=== PATIENT | male | born 1945 | race Caucasian/White ===

== ENCOUNTER → 2018-09-02 | Outpatient (CLI) | payer OTHER ==
[~2018-09-02] VITALS: Ht 185.4 cm; Wt 88.2 kg
[~2018-09-02] MED LIST: AMBIEN 10 MG TA10 MG PO; AMBIEN 5 MG TABL5 M1 PO; ASPIR 8181 M1 PO; ATORVASTATIN CA40 MG PO; CALCIUM 600 +1 EAC1 PO; CELEBREX 200 M200 M1 PO; CELEBREX 200 M200 MG PO; COLACE100 MG PO; FENTANYL PA50 MCG/HR TRANSDERM; HYDROCODONE-AP1 EAC6 PO; LIPITOR40 MG PO; LISINOPRIL10 MG PO; LOW DOSE ASPIRI81 M1 PO; MOBIC15 MG PO; Magnesium PO; Neurontin PO; ROBAXIN 750 MG750 M1 PO; TRAMADOL 50 MG50 MG PO; VITAMIN B12 PO
--- NOTE | ~2018-09-02 | HPC ---
[facility] [address] [place] [address] PAIN MANAGEMENT CONSULTATION Name: ROSY GARCIA Room #: REG JOSE A LianaLuis.#: [id number] Admission: 09/02/18 Attend Phys: Oritz Jain MD Discharge: Date of : 47 Report #: [id number] THIS REPORT FOR: //name// CC: Joshua Jain DATE OF SERVICE: 09/02/2018 Followup visit for chronic low back pain with radiculopathy. The patient is here today for a lumbar epidural injection. He has responded very favorably to injections performed for his L5-S1 spondylolisthesis. In addition, he has a spinal cord stimulator. Adjustment of the spinal cord stimulator was performed by a [employer] sales service representative. We spent some time today in consultation regarding chronic pain. He remains very active, can golf and shoot nearly his age. He shot a 79 last week. His pain is tolerable during activities. Pain becomes more severe often later in the day, with a radiating radicular component into the left leg and left foot following the L5-S1 distribution. PQRS: 1. He has a history of osteoarthritis involving several joints, including shoulders, hips and knees. He relates this to athletics. 2. His BMI is 25.7. He is fit. 3. He is not a fall risk. 4. He is on no blood thinners. 5. He is treated by his primary care physician for hypertension. 6. Medications are reviewed, including lisinopril. He is also on a statin drug. 7. He is on an opioid agreement and is at low risk for addiction. 8. Denies use of tobacco and alcohol. PHYSICAL EXAMINATION: VITAL SIGNS: Blood pressure 134/87, heart rate 91 and respirations 20. BMI is 25.7. MUSCULOSKELETAL: His gait is stable, without antalgic features. Mild tenderness across the low back. Some pain with forward flexion and extension that radiates into the left hip. Straight leg raising is mildly positive into the leg today. Spinal cord stimulator is in good position, mild tenderness over the battery pocket. IMPRESSION: Chronic left lumbar radiculopathy, L5-S1 distribution. PROCEDURE: Epidural injection under fluoroscopic guidance. [facility] [address] [place] [address] PAIN MANAGEMENT CONSULTATION Name: ROSY GARCIA Room #: REG [facility].#: [id number] Admission: 09/02/18 Attend Phys: Ortiz Jain MD Discharge: Date of : 47 Report #: [id number] DESCRIPTION OF PROCEDURE: He is taken to the fluoroscopic suite, placed prone and skin prepped with ChloraPrep. Skin anesthetized over the L5-S1 epidural space. Needle is advanced in first attempt into the epidural space with loss of resistance. There was no blood or CSF aspirated. A 1 mL of Omnipaque injected. Good spread of dye observed into the epidural space, followed by 3 mL of 0.5% lidocaine mixed with 80 mg of triamcinolone. He tolerated the procedure well, was observed in the recovery room for 45 minutes and discharged with a reduction of pain by about 50%. Followup visit planned as needed for further injections. By: [id number] Ortiz Jain MD /nt
[2018-09-02 08:57] VITALS: BP 134/87
--- NOTE | 2018-09-02 08:58 | NUR ---
Pain Clinic Assessment: 1. History of Osteoarthritis: Left Upper Extremity Right Lower Extremity History of Rheumatoid Arthritis: Not Applicable 2. Height: 6 ft. 1 in. 185.4 cm. Weight: 194.4 lb. oz. 88.179 kg. Patient's BMI: 25.7 3. Vital Signs: BP: 134/87 Pulse: 91 Resp: 20 Temp: 02 Sat: 98 ECG Mon: 4. Pain Intensity: 7 5. Fall Risk: Dizziness: Needs help standing or walking: Fallen in the last 3 months: Fall risk comments: 6. Patient on Blood Thinner: None 7. History of Hypertension: Y 8. Opioid Therapy greater than 6 weeks: Y Opiate Contract Signed: 9. Risk Assessment Tool Provided: LOW RISK 0/3 10. Functional Assessment Tool: 11. Recreational Drug Use: Never Drug Type: Tobacco Use: Never Smoker Tobacco Type: Amount or Packs/day: How Many Years: Alcohol Use: No Frequency: Quant:
== END | disposition home or self-care (01) ==
LOC: PAIN 06:58
DX: M54.16 Radiculopathy, lumbar region (principal); G89.29 Other chronic pain; I10 Essential (primary) hypertension; M19.90 Unspecified osteoarthritis, unspecified site; Z79.899 Other long term (current) drug therapy; Z98.890 Other specified postprocedural states; Z79.82 Long term (current) use of aspirin

== ENCOUNTER → 2018-11-04 | Outpatient (CLI) | payer OTHER ==
[~2018-11-04] VITALS: Ht 185.4 cm; Wt 88.0 kg
--- NOTE | ~2018-11-04 | HPC ---
[facility] [address] [place] [address] PAIN MANAGEMENT CONSULTATION Name: ROSY GARCIA Room #: REG JOSE A Skaggs.#: [id number] Admission: 11/04/18 ������������������ Attend Phys: Ortiz Jain MD Discharge: ������������������ Date of : 47 Report #: [id number] THIS REPORT FOR: //name// CC: Joshua Jain DATE OF SERVICE: 11/04/2018 CHIEF COMPLAINT: Followup visit for chronic low back pain with radiculopathy. HISTORY: The patient returns to clinic today continuing to complain of pain in the left leg following an L5 distribution. He has a history of chronic pain, which has been treated by spinal cord stimulator. This was the first, very helpful, but that has gradually declined in its ability to provide relief. He has responded to epidural injections. The last injection performed on 09/02/2018 provided relief, although the duration of response was not as long as we had hoped. He is a very active 73-year-old. We were approaching the golf season, he would like another injection. We discussed a transforaminal approach. MEDICATIONS: Reviewed and reconciled. Lisinopril, Lipitor, aspirin, magnesium, B12, Robaxin, Neurontin, Ambien, hydrocodone, tramadol are noted. BMI is 25.7. He is not a fall risk. He is on no blood thinners. He has a primary care physician, Dr. Mcgee, who treats him for hypertension. Denies use of tobacco or alcohol. He receives opioid medications from Dr. Mcgee under terms of written agreement. PHYSICAL EXAMINATION: He is fit appearing gentleman. Blood pressure is 123/68, heart rate 88 regular, respirations 16. His gait is stable. He has pain across the low back tenderness across the lumbosacral segment. Limited range of motion across the lumbosacral segment due to pain. Positive straight leg raising in the L5 distribution on the left. Mild numbness and tingling following the L5 distribution. No focal weakness is noted. IMPRESSION: Chronic lumbar radiculopathy, L5-S1. Spondylolisthesis of L5-S1. PROCEDURE: Epidural steroid injection, transforaminal approach. PROCEDURE: He was taken to fluoroscopic suite, placed prone, skin prepped with ChloraPrep. Skin anesthetized over the L5-S1 neural foramen on the left. Using triplanar fluoroscopic views, I advanced the needle into the epidural space; 1 mL of Omnipaque demonstrated medication along the L5 nerve [place] [address] PAIN MANAGEMENT CONSULTATION Name: ROSY GARCIA Room #: REG JOSE A Tejada#: [id number] Admission: 11/04/18 ������������������ Attend Phys: Ortiz Jain MD Discharge: ������������������ Date of : 47 Report #: [id number] epidural space, was followed by 3 mL of 0.5% lidocaine mixed with 80 mg of triamcinolone. He tolerated the procedure well, was observed for 45 minutes. Pain score was zero at discharge. Follow up as needed. Repeat injections will be performed as necessary, not exceeding guidelines. We will try to keep this to no more than 4-6 injections per year. Fewer the better. ��������������������������������������������� ���������������������������������������� By: ��������������������������������������������� [id number] Ortiz Jain MD /nt
[2018-11-04 08:32] VITALS: BP 123/68
--- NOTE | 2018-11-04 08:44 | NUR ---
Pain Clinic Assessment: 1. History of Osteoarthritis: Left Upper Extremity Right Lower Extremity History of Rheumatoid Arthritis: Not Applicable 2. Height: 6 ft. 1 in. 185.4 cm. Weight: 194.0 lb. oz. 87.998 kg. Patient's BMI: 25.6 3. Vital Signs: BP: 123/68 Pulse: 88 Resp: 16 Temp: 02 Sat: 100 ECG Mon: 4. Pain Intensity: 7-8 5. Fall Risk: Dizziness: N Needs help standing or walking: N Fallen in the last 3 months: N Fall risk comments: 6. Patient on Blood Thinner: None 7. History of Hypertension: Y 8. Opioid Therapy greater than 6 weeks: Y Opiate Contract Signed: 9. Risk Assessment Tool Provided: LOW RISK 0/3 10. Functional Assessment Tool: 43 11. Recreational Drug Use: Never Drug Type: Tobacco Use: Never Smoker Tobacco Type: Amount or Packs/day: How Many Years: Alcohol Use: No Frequency: Quant:
== END | disposition home or self-care (01) ==
LOC: PAIN 06:52
DX: M54.16 Radiculopathy, lumbar region (principal); M43.17 Spondylolisthesis, lumbosacral region; G89.29 Other chronic pain; I10 Essential (primary) hypertension; Z79.899 Other long term (current) drug therapy; Z79.82 Long term (current) use of aspirin; Z79.891 Long term (current) use of opiate analgesic; Z98.890 Other specified postprocedural states

== ENCOUNTER → 2019-01-10 | Outpatient (CLI) | payer OTHER ==
[~2019-01-10] VITALS: Ht 185.4 cm; Wt 85.9 kg
--- NOTE | ~2019-01-10 | HPC ---
[facility] [address] [place] [address] PAIN MANAGEMENT CONSULTATION Name: ROSY GARCIA Room #: REG JOSE A LittleAnahiLuisAnahi#: [id number] Admission: 01/10/19 ������������������ Attend Phys: Ortiz Jain MD Discharge: ������������������ Date of : 47 Report #: [id number] THIS REPORT FOR: //name// CC: Dr. Jaime Jain DATE OF SERVICE: 01/10/2019 CHIEF COMPLAINT: Followup visit for chronic low back pain with radiculopathy. HISTORY OF PRESENT ILLNESS: The patient was in the clinic today for 20-25 minute consultation followed by an epidural injection. We spent a lot of time talking about his overall energy. He reports he is about 50% of what he used to be. He still is active, likes to play golf, but he is tired through much of the day and just does not seem to have the get up and go that he had. It is pretty high expectations for himself and we discussed that. It does, however, appear that he has sleep deprivation. We discussed his concerns about sleep. He gets no more than about 4 hours a night. His says he does not snore and she does not hear that he has symptoms consistent with obstructive sleep apnea. Dr. Sandoval suggested a sleep study. We discussed his trouble with sleep and it does appear that he tends to ruminate at night and tries to solve problems at 2 a.m. after a short 4-hour period of sleep. He often times does not go back to bed, gets up and paces about the room or will sit down and read a story. He knows not to watch TV and stimulate himself with light, but sleep deprivation with nocturnal rumination may be more of a problem than obstructive sleep apnea. His pain is once again in his low back radiating into his left buttock. Spinal cord stimulator is not helping as much as we would like and an epidural injection seems to be the most beneficial treatment for him. His last injection was a transforaminal injection about 3-1/2 months ago and he would like to repeat that injection today. PHYSICAL EXAMINATION: He is pleasant, alert and oriented. Blood pressure 118/78, heart rate 83, respirations 16. BMI 25.0. He breathes easily through his mouth and nose. There is no obstruction noted in simple examination. His chest is clear. His cardiac rhythm is regular. He moves from an independent position, ambulates with mild antalgic features. He has a spinal cord stimulator battery in his left flank. He has pain across his low back and mild pain with back flexion and extension. Straight leg raising reproduces pain in the L5-S1 distribution. IMPRESSION: 1. Chronic lumbar radiculopathy, recurrent spondylolisthesis, L5-S1. 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 3. Sleep disturbance. The patient will consider a sleep study. PLAN: 1. Recommended tramadol [address] of hydrocodone. Prescription was written for 50 mg tablets #1, q. 8 hours p.r.n. pain. This was called in [employer]. Safeguarding of this mild opioid and serotonin drug was discussed. 2. Lumbar epidural steroid injection, transforaminal approach. PROCEDURE: He was taken to fluoroscopic suite, placed prone, skin prepped with ChloraPrep over L5-S1. A 22-gauge Tuohy epidural needle was advanced in the neural foramen using triplanar fluoroscopic views. No blood or CSF was aspirated. A 1 mL of Omnipaque was injected. Excellent epidurogram followed by 3 mL of 0.5% lidocaine mixed with 80 mg of triamcinolone. He tolerated the procedure well and was observed for 45 minutes and discharged. Follow up as needed. ��������������������������������������������� ���������������������������������������� By: ��������������������������������������������� 1627 [id number] Ortiz Jain MD /nt
[2019-01-10 09:06] VITALS: BP 118/78
--- NOTE | 2019-01-10 09:16 | NUR ---
Pain Clinic Assessment: 1. History of Osteoarthritis: Left Upper Extremity Right Lower Extremity History of Rheumatoid Arthritis: Not Applicable 2. Height: 6 ft. 1 in. 185.4 cm. Weight: 189.4 lb. oz. 85.911 kg. Patient's BMI: 25.0 3. Vital Signs: BP: 118/78 Pulse: 83 Resp: 16 Temp: 02 Sat: 100 ECG Mon: 4. Pain Intensity: 6-7 5. Fall Risk: Dizziness: N Needs help standing or walking: N Fallen in the last 3 months: N Fall risk comments: 6. Patient on Blood Thinner: None 7. History of Hypertension: Y 8. Opioid Therapy greater than 6 weeks: Y Opiate Contract Signed: 9. Risk Assessment Tool Provided: LOW RISK 0/3 10. Functional Assessment Tool: 43 11. Recreational Drug Use: Never Drug Type: Tobacco Use: Never Smoker Tobacco Type: Amount or Packs/day: How Many Years: Alcohol Use: No Frequency: Quant:
== END | disposition home or self-care (01) ==
LOC: PAIN 06:40
DX: M54.16 Radiculopathy, lumbar region (principal); M43.16 Spondylolisthesis, lumbar region; Z79.82 Long term (current) use of aspirin; Z79.899 Other long term (current) drug therapy

== ENCOUNTER → 2019-02-14 | Outpatient (CLI) | payer OTHER ==
[~2019-02-14] VITALS: Ht 185.4 cm; Wt 83.9 kg
[2019-02-14 08:57] VITALS: BP 142/82
--- NOTE | 2019-02-14 09:21 | NUR ---
Pain Clinic Assessment: 1. History of Osteoarthritis: Left Upper Extremity Right Lower Extremity History of Rheumatoid Arthritis: Not Applicable 2. Height: 6 ft. 1 in. 185.4 cm. Weight: 185.0 lb. oz. 83.916 kg. Patient's BMI: 24.4 3. Vital Signs: BP: 142/82 Pulse: 80 Resp: 14 Temp: 02 Sat: 98 ECG Mon: 4. Pain Intensity: 6-7 5. Fall Risk: Dizziness: N Needs help standing or walking: N Fallen in the last 3 months: N Fall risk comments: 6. Patient on Blood Thinner: None 7. History of Hypertension: Y 8. Opioid Therapy greater than 6 weeks: Y Opiate Contract Signed: 9. Risk Assessment Tool Provided: LOW RISK 0/3 10. Functional Assessment Tool: 43 11. Recreational Drug Use: Never Drug Type: Tobacco Use: Never Smoker Tobacco Type: Amount or Packs/day: How Many Years: Alcohol Use: No Frequency: Quant:
--- NOTE | 2019-02-22 17:25 | HPC ---
[facility] [address] [place] [address] PAIN MANAGEMENT CONSULTATION Name: ROSY GARCIA Room #: REG KEEGANChristina Tejada#: [id number] Admission: 02/14/19 ������������������ Attend Phys: Ortiz Jain MD Discharge: ������������������ Date of : 47 Report #: [id number] THIS REPORT FOR: //name// CC: Joshua Jain DATE OF SERVICE: 02/14/2019 Followup visit for chronic low back pain with radiculopathy. The patient was in the clinic today for a 25-minute consultation [id number]. His last epidural injection was not as helpful as the previous ones had been. We had a lengthy discussion today about his chronic pain. He began with back pain and radiculopathy. This was then treated aggressively with surgery after he failed conservative management. He then underwent a second surgery. Pain persisted. He had some injections, which failed. He then had a spinal cord stimulator placed. That was helpful for two years. The stimulator then began no longer helping. He then began getting injections once again under my care. He responded nicely to injections over several years. Only recently has the epidural not provided relief and we have hopes that he may be able to get another injection for relief sometime in February. He has reached the Medicare maximum of three injections within a six-month period. He had his first injection on 09/02/2018 in a six-month period and then, he had two subsequent injections, a transforaminal in November and another one in December. He says that his pain is in his low back and radiates into his left leg. It follows clearly an L4, L5, S1 distribution. He has a recurrent spondylolisthesis at L5-S1. We have been injecting at that location. I have reviewed his films and they look identical using a transforaminal approach. Currently, he is taking gabapentin 600 mg t.i.d. He has tramadol, but takes it only most severe of pain. He does not use hydrocodone at this time. He has Robaxin available for muscle spasm. PHYSICAL EXAMINATION: GENERAL: He is pleasant, alert, oriented. No signs of depression or anxiety. VITAL SIGNS: His blood pressure is 142/82, heart rate 80, respirations 14. He is 6 feet 1 inch, 185 pounds, BMI of 24.4. He looks extremely fit, moves easily from sitting to standing position. Gait is nonantalgic. CHEST: Clear. CARDIAC: Rhythm is regular. MUSCULOSKELETAL: Examination of the spine reveals normal alignment. There is a scar from previous surgery. There is a spinal cord stimul[place] [address] PAIN MANAGEMENT CONSULTATION Name: ROSY GARCIA Room #: REG JOSE A Skaggs.#: [id number] Admission: 02/14/19 ������������������ Attend Phys: Ortiz Jain MD Discharge: ������������������ Date of : 47 Report #: [id number] tenderness across the lumbosacral segment. Straight leg raising reproduces pain into the left lower extremity. PQRS notes that he has some history of osteoarthritis of the large joints including hips, knees and ankle. He is not a fall risk. He is on no blood thinners and is currently under treatment for hypertension with lisinopril. He is on an opioid agreement for his tramadol and is considered at low risk for addiction. He does not use tobacco or alcohol and remains fairly very active. IMPRESSION: 1. Chronic low back pain with radiculopathy with recurrent radicular symptoms in the L5-S1 distribution on the left. Spondylolisthesis. 2. Failed back surgery. 3. Failure of spinal cord stimulation therapy. 4. Medication management. PLAN: I would be willing to repeat another epidural injection for him in February. In the meantime, we talked about planning placing prioritizing living with chronic pain for a good portion of his visit. He does remain very active. I have encouraged him to remain as active as possible, which I think is therapeutic on many levels. ��������������������������������������������� <ELECTRONICALLY SIGNED> ���������������������������������������� By: Ortiz Jain MD ��������������������������������������������� 02/22/19 1725 [id number] 35 Ortiz Jain MD /nt
== END ==
LOC: PAIN 06:44
DX: M54.16 Radiculopathy, lumbar region (principal); M43.16 Spondylolisthesis, lumbar region; Z79.899 Other long term (current) drug therapy

== ENCOUNTER → 2019-03-14 | Outpatient (CLI) | payer OTHER ==
[~2019-03-14] VITALS: Ht 185.4 cm; Wt 83.1 kg
[~2019-03-14] MED LIST changes: +NEURONTIN800 MG PO; -Neurontin PO; +ROBAXIN 750 MG750 MG PO
--- NOTE | ~2019-03-14 | HPC ---
[facility] [address] [address] PAIN MANAGEMENT CONSULTATION Name: ROSY GARCIA Room #: REG JOSE A Mallory#: [id number] Admission: 03/14/19 ������������������ Attend Phys: Ortiz Jain MD Discharge: ������������������ Date of : 47 Report #: [id number] THIS REPORT FOR: //name// CC: Joshua Jain DATE OF SERVICE: 03/14/2019 Followup visit for lumbar radiculopathy, left L5-S1 distribution. The patient returns today for left L5-S1 transforaminal epidural injection. We had a 25-minute consultation 1 month ago. Little has changed since that time. I did give him some tramadol, which he used effectively, taking it very conservatively, no more than 3-4 times a week. He took it prior to playing golf and found that it significantly eased some of his back pain, and he was able to shoot a 69. This is remarkable given the fact that he is 73 years of age. He did acknowledge a plate from ____ Today, the pain is the same, it is in his low back that radiates to his left leg. It is not covered effectively by spinal cord stimulation. He remains active and is as healthy as any 73-year-old patient that have remained fully functional. We discussed potential risks and benefits of epidural injections, particularly the use of steroids intermittently over a long period of time. He is well aware that there are some cortisone related side effects, and we discussed them in detail. PHYSICAL EXAMINATION: GENERAL: He is a very healthy, pleasant, alert and oriented 73-year-old. He moves easily from sitting to standing position. Gait is mildly antalgic. VITAL SIGNS: Blood pressure is 125/82, heart rate is 72. BACK: Spine reveals localized tenderness. There is some mild pain with forward flexion, extension and rotation. Straight leg raising on the left is consistent at L5-S1 distribution. IMPRESSION: Lumbar radiculopathy, L5-S1. PROCEDURE: Left L5-S1 transforaminal epidural injection under fluoroscopic guidance. DESCRIPTION OF PROCEDURE: He was taken to fluoroscopic suite, placed prone, skin prepped with ChloraPrep. Skin was anesthetized over the L5-S1 neural foramen on the left. Using triplanar fluoroscopic views, I advanced needle into the neural foramen. A 0.25 mL of Omnipaque was injected with good spread of dye [address] [address] PAIN MANAGEMENT CONSULTATION Name: ROSY GARCIA Room #: REG CL Mallory#: [id number] Admission: 03/14/19 ������������������ Attend Phys: Ortiz Jain MD Discharge: ������������������ Date of : 47 Report #: [id number] observed into the epidural space, followed by 3 mL of 0.5% lidocaine mixed with 60 mg of triamcinolone. He tolerated the procedure well and was observed for 45 minutes and discharged with a followup visit scheduled in the pain clinic on an as needed basis in the future. We will try to limit his epidural injections to the fewest necessary to meet his pain and activity needs. We discussed extensively expectations at prior visit. ��������������������������������������������� ���������������������������������������� By: ��������������������������������������������� 0943 1002 Ortiz Jain MD /nt
[2019-03-14 08:58] VITALS: BP 135/79
--- NOTE | 2019-03-14 09:11 | NUR ---
Pain Clinic Assessment: 1. History of Osteoarthritis: Left Upper Extremity Right Lower Extremity History of Rheumatoid Arthritis: Not Applicable 2. Height: 6 ft. 1 in. 185.4 cm. Weight: 183.2 lb. oz. 83.099 kg. Patient's BMI: 24.2 3. Vital Signs: BP: 135/79 Pulse: 77 Resp: 14 Temp: 02 Sat: 100 ECG Mon: 4. Pain Intensity: 5 5. Fall Risk: Dizziness: N Needs help standing or walking: N Fallen in the last 3 months: N Fall risk comments: 6. Patient on Blood Thinner: None 7. History of Hypertension: Y 8. Opioid Therapy greater than 6 weeks: Y Opiate Contract Signed: 9. Risk Assessment Tool Provided: LOW RISK 0/3 10. Functional Assessment Tool: 43/70 11. Recreational Drug Use: Never Drug Type: Tobacco Use: Never Smoker Tobacco Type: Amount or Packs/day: How Many Years: Alcohol Use: No Frequency: Quant:
== END | disposition home or self-care (01) ==
LOC: PAIN 06:48
DX: M54.17 Radiculopathy, lumbosacral region (principal); G89.29 Other chronic pain; Z79.82 Long term (current) use of aspirin; Z79.899 Other long term (current) drug therapy; Z98.890 Other specified postprocedural states

== ENCOUNTER → 2019-06-20 | Outpatient (CLI) | payer OTHER ==
--- NOTE | ~2019-06-20 | HPC ---
[facility] [address] [place] [address] PAIN MANAGEMENT CONSULTATION Name: ROSY GARCIA Room #: REG JOSE A Skaggs.#: [id number] Admission: 06/20/19 Attend Phys: Ortiz Jain MD Discharge: Date of : 47 Report #: [id number] THIS REPORT FOR: //name// CC: Joshua Jain Followup visit for chronic low back pain with radiculopathy. The patient is here today in the pain clinic for a [id number] consultation followed by a left L5-S1 transforaminal injection. He continues to have recurring symptoms of pain radiating into the left leg despite his spinal cord stimulator. He reports that the stimulator was quite good when it was first placed, but now is providing only about 40% pain relief. He turns it off at night when sleeping. He reports that he gets his best relief from a cortisone epidural injection and can get relief anywhere from 3-6 months of a substantial nature. He normally is quite active. He is a single digit handicapped golfer, but has had a really rough last 3-4 months. He was treated in our clinic on 02/14/2019 with a transforaminal injection. Beginning around 04/24/2019, he began suffering a severe headache, lassitude and fatigue. He was hospitalized and found to have viral meningitis. He has been slowly recovering, but remains puny. He says he has very little energy and has not returned to the golf course even during the good days of the fall. PQRS REVIEW: 1. Positive for some osteoarthritis involving shoulders, hips, and knees. This is moderate. He has lumbar spondylosis and spondylolisthesis. 2. His BMI is 24.2. He appears fit. 3. Vital signs: Blood pressure 135/79, heart rate 77, O2 sat 100%. 4. Pain intensity 5/10. 5. He is not a fall risk. 6. No blood thinning medications. 7. He does have a history of hypertension and is under treatment by Dr. Mcgee. All medications were reviewed and reconciled. They are on the electronic medical record. He takes lisinopril 10 mg daily at 9 a.m. 8. He is on an opioid agreement. He takes very little hydrocodone. It may be days between pain medications, but when the pain is severe, he is able to get relief with a single hydrocodone. The last prescription provided for him was in July by Dr. Mcgee. 9. He is at low risk for addiction by the ORT. 10. Functional assessment score is 43/70; this is a high number for him. 11. Recreational drug use, alcohol and tobacco none. IMPRESSION: 1. Chronic low back pain with radiculopathy, status post spinal cord [address] [address] PAIN MANAGEMENT CONSULTATION Name: ROSY GARCIA Room #: REG [facility] Mallory#: [id number] Admission: 06/20/19 Attend Phys: Ortiz Jain MD Discharge: Date of : 47 Report #: [id number] stimulator. He continues to have left L5-S1 pain in the level of 7-8/10. RECOMMENDATION: Repeat L5-S1 transforaminal epidural injection under fluoroscopic guidance. DESCRIPTION OF PROCEDURE: He was taken to fluoroscopic suite, placed prone, skin prepped with ChloraPrep. Skin anesthetized over the L5-S1 interspace. Using triplanar fluoroscopic views, I advanced the needle into the neural foramen. No blood and/or CSF was aspirated. A 0.25 mL of Omnipaque was injected and excellent epidurogram was achieved, it was then followed by 3 mL of 0.5% lidocaine mixed with 80 mg of triamcinolone. He tolerated the procedure well. Pain score was 0 at discharge. Follow up as needed. By: [id number] Ortiz Jain MD /nt
--- NOTE | 2019-06-20 11:53 | NUR ---
Pain Clinic Assessment: 1. History of Osteoarthritis: Left Upper Extremity Right Lower Extremity History of Rheumatoid Arthritis: Not Applicable 2. Height: ft. in. cm. Weight: lb. oz. kg. Patient's BMI: 3. Vital Signs: BP: Pulse: Resp: Temp: 02 Sat: ECG Mon: 4. Pain Intensity: 7-8 5. Fall Risk: Dizziness: N Needs help standing or walking: N Fallen in the last 3 months: N Fall risk comments: 6. Patient on Blood Thinner: None 7. History of Hypertension: Y 8. Opioid Therapy greater than 6 weeks: Y Opiate Contract Signed: 9. Risk Assessment Tool Provided: LOW RISK 0/3 10. Functional Assessment Tool: 43/70 11. Recreational Drug Use: Never Drug Type: Tobacco Use: Never Smoker Tobacco Type: Amount or Packs/day: How Many Years: Alcohol Use: No Frequency: Quant:
== END | disposition home or self-care (01) ==
LOC: PAIN 07:07
DX: M54.16 Radiculopathy, lumbar region (principal); I10 Essential (primary) hypertension; Z79.82 Long term (current) use of aspirin; Z79.899 Other long term (current) drug therapy

== ENCOUNTER → 2019-09-29 | Outpatient (CLI) | payer OTHER ==
[~2019-09-29] VITALS: Ht 185.4 cm; Wt 89.7 kg
--- NOTE | ~2019-09-29 | HPC ---
[facility] [place] [address] PAIN MANAGEMENT CONSULTATION Name: ROSY GARCIA Room #: REG JOSE A Mallory#: [id number] Admission: 09/29/19 Attend Phys: Ortiz Jain MD Discharge: Date of : 47 Report #: [id number] THIS REPORT FOR: cc: Joshua Mcgee MD,Joshua Jain,Ortiz Londono MD ~ THIS REPORT FOR: //name// CC: Joshua Jain DATE OF SERVICE: 09/29/2019 Followup visit for grade 1-2 spondylolisthesis L4-L5 with lumbar radiculopathy on the left following an L5 distribution. The patient responds nicely to transforaminal epidural injections. His last injection was performed in May. He is here today because his pain is returning to a level of about 8. He is one of the most fit 74-year-old man I know. He has had a number of surgeries for his back and has a spinal cord stimulator, but continues to remain extremely active. He is 74 years old and he shot a 65 for 18 holes of golf. He with some modesty says that he shot them from the goal tees, but 68 for a 74-year-old is a remarkable score. He likes to garden, is a master senior hardware design engineer. So he is highly functional. When the pain is severe and is interfering with his activities, he shows up in the clinic hoping for a transforaminal epidural injection and that is where he is today. PQRS REVIEW: Positive for osteoarthritis involving his left shoulder, his right hip. He has a BMI of 26.1. He is extremely fit for age. Blood pressure 137/85, heart rate 87, respirations 16, O2 sat is 98. Pain intensity 8. He has no fall risk. He is on no blood thinning medications. He is treated for hypertension. All medications were reviewed and reconciled. Tramadol, atorvastatin, aspirin, zolpidem, methocarbamol, gabapentin and lisinopril. He does take a small amount of tramadol and for that, we had him sign an opioid agreement. He also has had hydrocodone in the past. He is at moderate risk by the opioid risk tool for addiction. His functional assessment score 40/70. Denies use of tobacco or alcohol. PHYSICAL EXAMINATION: As above. A very fit gentleman. Walks easily without [facility] [address] [place] [address] PAIN MANAGEMENT CONSULTATION Name: ROSY GARCIA Room #: REG JOSE A LittleJuan Francisco#: [id number] Admission: 09/29/19 Attend Phys: Ortiz Jain MD Discharge: Date of : 47 Report #: [id number] antalgic features. He has tenderness across his low back and positive straight leg raising on the left following an L5 distribution. IMPRESSION: Lumbar radiculopathy, L5-S1. PROCEDURE: Transforaminal epidural injection under fluoroscopic guidance. DESCRIPTION OF PROCEDURE: He was taken to fluoroscopic suite, placed prone, skin prepped with ChloraPrep. Skin was anesthetized over the L5-S1 neural foramen. Using triplanar fluoroscopic views, I advanced the needle into the neural foramen. There was no blood or CSF aspirated. A 1 mL of Omnipaque was injected. Good spread of dye was observed into the epidural space, was followed by 3 mL of 0.5% lidocaine mixed with 80 mg of triamcinolone. He tolerated the procedure well and was observed for 45 minutes and discharged without complication. Followup visit planned as needed. By: [id number] Ortiz Jain MD /nt
[2019-09-29 09:01] VITALS: BP 137/85
--- NOTE | 2019-09-29 09:11 | NUR ---
Pain Clinic Assessment: 1. History of Osteoarthritis: Left Upper Extremity Right Lower Extremity History of Rheumatoid Arthritis: Not Applicable 2. Height: 6 ft. 1 in. 185.4 cm. Weight: 197.8 lb. oz. 89.722 kg. Patient's BMI: 26.1 3. Vital Signs: BP: 137/85 Pulse: 87 Resp: 16 Temp: 02 Sat: 98 ECG Mon: 4. Pain Intensity: 8 5. Fall Risk: Dizziness: N Needs help standing or walking: N Fallen in the last 3 months: N Fall risk comments: 6. Patient on Blood Thinner: None 7. History of Hypertension: Y 8. Opioid Therapy greater than 6 weeks: Y Opiate Contract Signed: 9. Risk Assessment Tool Provided: MODERATE RISK 11/28 10. Functional Assessment Tool: 11. Recreational Drug Use: Never Drug Type: Tobacco Use: Never Smoker Tobacco Type: Amount or Packs/day: How Many Years: Alcohol Use: No Frequency: Quant:
== END | disposition home or self-care (01) ==
LOC: PAIN 06:53
DX: M54.16 Radiculopathy, lumbar region (principal); M43.16 Spondylolisthesis, lumbar region; I10 Essential (primary) hypertension; M19.90 Unspecified osteoarthritis, unspecified site; Z98.890 Other specified postprocedural states; Z79.899 Other long term (current) drug therapy; Z79.82 Long term (current) use of aspirin

== ENCOUNTER → 2020-04-02 | Outpatient (CLI) | payer OTHER ==
[~2020-04-02] VITALS: Ht 185.4 cm; Wt 86.0 kg
--- NOTE | ~2020-04-02 | HPC ---
[facility] [place] [address] PAIN MANAGEMENT CONSULTATION Name: ROSY GARCIA Room #: REG JOSE A Skaggs.#: [id number] Admission: 04/02/20 Attend Phys: Ortiz Jain MD Discharge: Date of : 47 Report #: [id number] THIS REPORT FOR: cc: Julio Scott MD,Julio Jain,Ortiz Londono MD ~ CC: Julio Jain DATE OF SERVICE: 04/02/2020 Followup visit for left L5 lumbar radiculopathy. The patient returns to pain clinic today for an L5-S1 transforaminal epidural injection. He has been preauthorized for the injection. He is a very highly active and functional gentleman who I have seen and treated for a few years. He always receives relief for many months and is able to continue with his activities including golf. He golfed his age, this summer, which is 74, an outstanding score; obviously is in excellent shape. He continues to garden and do other activities. The pain is now returning, would like to receive the injection. He has no contraindications. We have explained the procedure on each occasion. We explained it again including risks and benefits and he is anxious to proceed. PQRS REVIEW: 1. He has some osteoarthritis in his shoulder on the left and his right knee. 2. BMI is 25. He is fit and healthy. 3. Vital signs: Blood pressure 124/89, heart rate 75, respirations 14, O2 sat 100. 4. Pain intensity 8. 5. He is not a fall risk. 6. No blood thinners. 7. History of hypertension, under treatment. All medications reviewed and reconciled. 8. He has been on opioid therapy and has completed risk assessment tool scores at 11/28. He uses tramadol and gabapentin as well as methocarbamol. 9. Functional assessment score is 40. 10. Denies use of tobacco and alcohol. PHYSICAL EXAMINATION: VITAL SIGNS: As noted: GENERAL: He is very fit. MUSCULOSKELETAL: Moves independently from sitting to standing position, ambulates without much difficulty. He has a spinal cord stimulator battery on the left. He has tenderness across the left lumbosacral segment. Positive [facility] [address] [address] PAIN MANAGEMENT CONSULTATION Name: ROSY GARCIA Room #: REG [facility].#: [id number] Admission: 04/02/20 Attend Phys: Ortiz Jain MD Discharge: Date of : 47 Report #: [id number] straight leg raising based in the L5 distribution. IMPRESSION: L5 radiculopathy. PROCEDURE: L5-S1 transforaminal epidural injection under fluoroscopic guidance. He was taken to fluoroscopic suite for treatment, placed prone, skin prepped with ChloraPrep. Skin anesthetized over the L5-S1 neural foramen. Using triplanar fluoroscopic views, I advanced needle into the neural foramen. There was no blood or CSF aspirated. A 1 mL of Omnipaque was injected and excellent epidurogram was achieved along with it tracing out of the L5 nerve root. This was followed by 4 mL of 0.5% lidocaine mixed with 80 mg triamcinolone. He tolerated the procedure well and was observed for 45 minutes and discharged. Followup visit planned as needed. No medications were ordered on today's visit. By: [id number] Ortiz Jain MD /nt
[2020-04-02 10:30] VITALS: BP 124/89
--- NOTE | 2020-04-02 10:48 | NUR ---
Pain Clinic Assessment: 1. History of Osteoarthritis: Left Upper Extremity Right Lower Extremity History of Rheumatoid Arthritis: Not Applicable 2. Height: 6 ft. 1 in. 185.4 cm. Weight: 189.6 lb. oz. 86.002 kg. Patient's BMI: 25.0 3. Vital Signs: BP: 124/89 Pulse: 75 Resp: 14 Temp: 02 Sat: 100 ECG Mon: 4. Pain Intensity: 8 5. Fall Risk: Dizziness: N Needs help standing or walking: N Fallen in the last 3 months: N Fall risk comments: 6. Patient on Blood Thinner: None 7. History of Hypertension: Y 8. Opioid Therapy greater than 6 weeks: Y Opiate Contract Signed: 9. Risk Assessment Tool Provided: MODERATE RISK 11/28 10. Functional Assessment Tool: 11. Recreational Drug Use: Never Drug Type: Tobacco Use: Never Smoker Tobacco Type: Amount or Packs/day: How Many Years: Alcohol Use: No Frequency: Quant:
== END | disposition home or self-care (01) ==
LOC: PAIN 06:46
PROVIDERS: ATTEND Anesthesiology Pain Medicine
DX: M54.16 Radiculopathy, lumbar region (principal); I10 Essential (primary) hypertension; M19.90 Unspecified osteoarthritis, unspecified site; Z79.899 Other long term (current) drug therapy; Z98.890 Other specified postprocedural states

== ENCOUNTER → 2020-09-24 | Outpatient (CLI) | payer OTHER ==
[~2020-09-24] VITALS: Ht 185.4 cm; Wt 87.4 kg
[2020-09-24 10:44] VITALS: BP 149/98
--- NOTE | 2020-09-24 10:54 | NUR ---
Pain Clinic Assessment: 1. History of Osteoarthritis: Left Upper Extremity Right Lower Extremity History of Rheumatoid Arthritis: Not Applicable 2. Height: 6 ft. 1 in. 185.4 cm. Weight: 192.6 lb. oz. 87.363 kg. Patient's BMI: 25.4 3. Vital Signs: BP: 149/98 Pulse: 76 Resp: 14 Temp: 02 Sat: 100 ECG Mon: 4. Pain Intensity: 6 5. Fall Risk: Dizziness: N Needs help standing or walking: N Fallen in the last 3 months: N Fall risk comments: 6. Patient on Blood Thinner: None 7. History of Hypertension: Y 8. Opioid Therapy greater than 6 weeks: Y Opiate Contract Signed: 9. Risk Assessment Tool Provided: MODERATE RISK 11/28 10. Functional Assessment Tool: 11. Recreational Drug Use: Never Drug Type: Tobacco Use: Never Smoker Tobacco Type: Amount or Packs/day: How Many Years: Alcohol Use: No Frequency: Quant:
== END | disposition home or self-care (01) ==
LOC: PAIN 06:51
PROVIDERS: ATTEND Anesthesiology Pain Medicine
DX: M54.16 Radiculopathy, lumbar region (principal); M43.16 Spondylolisthesis, lumbar region; G89.29 Other chronic pain; I10 Essential (primary) hypertension; M19.90 Unspecified osteoarthritis, unspecified site; Z98.890 Other specified postprocedural states; Z79.899 Other long term (current) drug therapy; Z79.82 Long term (current) use of aspirin

== ENCOUNTER → 2021-03-07 | Outpatient (CLI) | payer OTHER ==
[~2021-03-07] VITALS: Ht 182.9 cm; Wt 84.9 kg
[~2021-03-07] MED LIST changes: +IRON325 M1 PO
[2021-03-07 08:53] VITALS: BP 120/67
--- NOTE | 2021-03-07 08:56 | NUR ---
Pain Clinic Assessment: 1. History of Osteoarthritis: Left Upper Extremity Right Lower Extremity History of Rheumatoid Arthritis: Not Applicable 2. Height: 6 ft. 0 in. 182.9 cm. Weight: 187.2 lb. oz. 84.913 kg. Patient's BMI: 25.4 3. Vital Signs: BP: 120/67 Pulse: 84 Resp: 16 Temp: 02 Sat: 100 ECG Mon: 4. Pain Intensity: 9 5. Fall Risk: Dizziness: N Needs help standing or walking: N Fallen in the last 3 months: N Fall risk comments: 6. Patient on Blood Thinner: None 7. History of Hypertension: Y 8. Opioid Therapy greater than 6 weeks: Y Opiate Contract Signed: 9. Risk Assessment Tool Provided: MODERATE RISK 11/28 10. Functional Assessment Tool: 11. Recreational Drug Use: Never Drug Type: Tobacco Use: Never Smoker Tobacco Type: Amount or Packs/day: How Many Years: Alcohol Use: No Frequency: Quant:
== END | disposition home or self-care (01) ==
LOC: PAIN 06:50
PROVIDERS: ATTEND Anesthesiology Pain Medicine
DX: M54.17 Radiculopathy, lumbosacral region (principal); G89.29 Other chronic pain; M19.90 Unspecified osteoarthritis, unspecified site; Z79.899 Other long term (current) drug therapy